=== PATIENT | male | born 1995 | race Caucasian/White ===

== ENCOUNTER 2016-08-13 11:15 | Emergency (ER) | payer BC ==
[~2016-08-13] VITALS: Ht 177.8 cm; Wt 67.8 kg
[2016-08-13 12:54] VITALS: BP 155/90
== END 2016-08-13 12:57 | disposition home or self-care (01) ==
LOC: EME 11:15 → EXP 12:01
DX: S62.002A Unspecified fracture of navicular [scaphoid] bone of left wrist, initial encounter for closed fracture (principal); Z88.2 Allergy status to sulfonamides
CPT/HCPCS: 99281; 99283